=== PATIENT | female | born 1960 | race Caucasian/White ===

== ENCOUNTER 2018-02-06 19:41 | Emergency (ER) | payer OTHER ==
[~2018-02-06] VITALS: Ht 154.9 cm; Wt 77.1 kg
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
[2018-02-06] MEDS ORDERED: KETOROLAC TROMETHAMINE INJ 30 MG/ML VIAL ONE (20:08)
[2018-02-06] MEDS ORDERED: HYDROMORPHONE INJ 2 MG/ML DISP.SYRIN ONE (20:09)
[2018-02-06] MEDS ORDERED: ONDANSETRON 4 MG TAB.RAPDIS ONE (20:10)
[2018-02-06] MEDS: KETOROLAC TROMETHAMINE INJ 30 MG/ML VIAL IM ONE (20:16)
[2018-02-06] MEDS: ONDANSETRON 4 MG TAB.RAPDIS SL ONE (20:16)
[2018-02-06] MEDS: HYDROMORPHONE 1 MG/1 ML DISP.SYRIN IM ONE (20:17)
--- NOTE | 2018-02-06 20:18 | NUR ---
PT TO RADIOLOGY FOR X-RAY
[2018-02-06 21:36] VITALS: BP 129/88
--- NOTE | 2018-02-06 21:54 | NUR ---
Patient discharged to home in stable condition. Written and verbal after care instructions along with RX given. Patient verbalizes understanding of instruction. VSS upon discharge. Pt ambulated with steady gait out of ER.
== END 2018-02-06 21:37 | disposition home or self-care (01) ==
LOC: ER 19:46
DX: S20.212A Contusion of left front wall of thorax, initial encounter (principal); G89.29 Other chronic pain; M54.5 Low back pain; F17.200 Nicotine dependence, unspecified, uncomplicated; J45.909 Unspecified asthma, uncomplicated; M51.26 Other intervertebral disc displacement, lumbar region; Z88.2 Allergy status to sulfonamides; Z88.8 Allergy status to other drugs, medicaments and biological substances; Z88.6 Allergy status to analgesic agent; Z88.1 Allergy status to other antibiotic agents; W01.198A Fall on same level from slipping, tripping and stumbling with subsequent striking against other object, initial encounter; Y93.89 Activity, other specified; Y92.89 Other specified places as the place of occurrence of the external cause; Y99.8 Other external cause status
CPT/HCPCS: 71100-TC; A4606; J1170; J1885; Q0162; Z7610